=== PATIENT | female | born 1940 | race Caucasian/White ===

== ENCOUNTER 2021-01-02 18:03 | Inpatient (IN) | payer MEDICARE, SELFPAY ==
[2021-01-02 18:19] VITALS: BP 164/79; PULSE 89; RESP 18; TEMP 36.6; O2SAT 94; BMI 25.0
--- NOTE | 2021-01-02 18:25 | CTR_ITS ---
PROCEDURE INFORMATION: Exam: CT Angiography Head With Contrast, Arteriography Exam date and time: 01/02/2021 6:25 PM Age: 80 years old Clinical indication: Speech disturbance; Aphasia; Additional info: Suspected stroke >24 hrs ago TECHNIQUE: Imaging protocol: Computed tomography angiography of the head with contrast. Exam focused on the arteries. 3D rendering (Not supervised by radiologist): MIP and/or 3D reconstructed images were created by the technologist. Radiation optimization: All CT scans at this facility use at least one of these dose optimization techniques: automated exposure control; mA and/or kV adjustment per patient size (includes targeted exams where dose is matched to clinical indication); or iterative reconstruction. Contrast material: VISIPAQUE; Contrast volume: 95 ml; Contrast route: INTRAVENOUS (IV); COMPARISON: CT head wo con* [id number] 01/02/2021 7:31 PM RADIATION DOSE METRICS: Total DLP (mGy-cm): 2001.77 FINDINGS: ANTERIOR CIRCULATION: Right internal carotid artery: Unremarkable. Intracranial segment is patent with no significant stenosis. No aneurysm. Right middle cerebral artery: Unremarkable. No occlusion or significant stenosis. No aneurysm. Right anterior cerebral artery: Unremarkable. No occlusion or significant stenosis. No aneurysm. Left internal carotid artery: Unremarkable. Intracranial segment is patent with no significant stenosis. No aneurysm. Left middle cerebral artery: Unremarkable. No occlusion or significant stenosis. No aneurysm. Left anterior cerebral artery: Unremarkable. No occlusion or significant stenosis. No aneurysm. POSTERIOR CIRCULATION: Right vertebral artery: Unremarkable. No occlusion or significant stenosis. No aneurysm. Left vertebral artery: Unremarkable. No occlusion or significant stenosis. No aneurysm. Basilar artery: Unremarkable. No occlusion or significant stenosis. No aneurysm. Right posterior cerebral artery: Unremarkable. No occlusion or significant stenosis. No aneurysm. Left posterior cerebral artery: Unremarkable. No occlusion or significant stenosis. No aneurysm. Brain: Geographic area of decreased attenuation in the left frontal lobe is redemonstrated. Negative for intracranial hemorrhage. There is moderate cerebral atrophy. Cerebral ventricles: No ventriculomegaly. Bones/joints: Unremarkable. No acute fracture. Soft tissues: Unremarkable. IMPRESSION: No intracranial large arterial vessel occlusion identified. PROCEDURE INFORMATION: Exam: CT Angiography Neck With Contrast Exam date and time: 01/02/2021 6:25 PM Age: 80 years old Clinical indication: Speech disturbance; Aphasia; Additional info: Suspected stroke >24 hrs ago TECHNIQUE: Imaging protocol: Computed tomography angiography of the neck with contrast. 3D rendering (Not supervised by radiologist): MIP and/or 3D reconstructed images were created by the technologist. Radiation optimization: All CT scans at this facility use at least one of these dose optimization techniques: automated exposure control; mA and/or kV adjustment per patient size (includes targeted exams where dose is matched to clinical indication); or iterative reconstruction. Contrast material: VISIPAQUE; Contrast volume: 95 ml; Contrast route: INTRAVENOUS (IV); COMPARISON: CT head wo con* [id number] 01/02/2021 7:31 PM RADIATION DOSE METRICS: Total DLP (mGy-cm): 2001.77 FINDINGS: Right common carotid artery: No stenosis. No dissection or occlusion. Right internal carotid artery: No significant stenosis of the extracranial segment. No dissection or occlusion. Small mostly calcified plaque volume in the bifurcation. Right external carotid artery: No occlusion or stenosis of the origin. Left common carotid artery: No stenosis. No dissection or occlusion. Left internal carotid artery: No significant stenosis of the extracranial segment. No dissection or occlusion. Small mostly calcified plaque volume in the bifurcation. Left external carotid artery: No occlusion or stenosis of the origin. Right vertebral artery: No stenosis. No dissection or occlusion. Left vertebral artery: No stenosis. No dissection or occlusion. Thyroid: Tiny low-attenuation nodule foci in the thyroid lobes with no thyroid gland enlargement. No dedicated follow-up recommended. Soft tissues: Normal. No significant soft tissue swelling. Bones/joints: The cervical spine demonstrates moderate degenerative changes at multiple levels. Unremarkable alignment. Lungs: Mild emphysema of the lung apices. CT/CT angio headneck* [id number] IMPRESSION: 1. Less than 50% stenosis in the carotid arteries. 2. Negative for vascular occlusion in the neck. COMMENTS: Consistent with the [employer]'s Incidental Findings Committee white paper (J Am Hieu Radiol 2015): In patients aged 35 years and older with an incidental thyroid nodule equal to or greater than 1.[address], MRI or extrathyroidal US, further evaluation with dedicated thyroid US is recommended for patients with normal life expectancy and without comorbidities. For smaller nodules without suspicious features, no further evaluation or follow up is recommended. REFERENCES: NASCET CRITERIA. The degree of internal carotid artery stenosis is based on NASCET criteria. Normal is no stenosis. Mild is less than 50% stenosis. Moderate is 50-69% stenosis. Severe is 70% to 99% stenosis. Total occlusion is no detectable patent lumen. Radiation Dose CTDIVOL = (mGy): DLP = 2002.77~2002.77 (mGy-cm)
--- NOTE | 2021-01-02 18:25 | CTR_ITS ---
PROCEDURE INFORMATION: Exam: CT Head Without Contrast Exam date and time: 01/02/2021 6:25 PM Age: 80 years old Clinical indication: Altered mental status/memory loss and speech disturbance; Confusion or disorientation; Aphasia; Additional info: Suspected stroke TECHNIQUE: Imaging protocol: Computed tomography of the head without contrast. Radiation optimization: All CT scans at this facility use at least one of these dose optimization techniques: automated exposure control; mA and/or kV adjustment per patient size (includes targeted exams where dose is matched to clinical indication); or iterative reconstruction. Other technique: STROKE PROTOCOL was implemented. COMPARISON: CT head wo con* [id number] 07/30/2014 5:36 PM RADIATION DOSE METRICS: Total DLP (mGy-cm): 872.27 FINDINGS: Brain: Left frontal 2.7 cm transverse x 1.5 cm AP x 4.9 cm craniocaudal area of decreased attenuation suggestive of a infarct, age indeterminate, new compared to prior exam, in the region of the left lateral middle cerebral artery M2 territory. Cerebral ventricles: No ventriculomegaly. Paranasal sinuses: Visualized sinuses are unremarkable. No fluid levels. Mastoid air cells: Visualized mastoid air cells are well aerated. Bones/joints: Unremarkable. No acute fracture. Soft tissues: Unremarkable. CT/CT head wo con* [id number] IMPRESSION: 1. Left frontal 2.7 cm transverse x 1.5 cm AP x 4.9 cm craniocaudal area of decreased attenuation suggestive of a infarct, age indeterminate, new compared to prior exam, in the region of the left lateral middle cerebral artery M2 territory. 2. Negative for intracranial hemorrhage or mass effect ASSESSMENT: ASPECTS ([place] Stroke Program Early CT Score) is 9. Radiation Dose CTDIVOL = (mGy): DLP = 872.27 (mGy-cm)
--- NOTE | 2021-01-02 18:25 | XRR_ITS ---
PROCEDURE INFORMATION: Exam: XR Chest Exam date and time: 01/02/2021 6:25 PM Age: 80 years old Clinical indication: Cough; Additional info: AMS TECHNIQUE: Imaging protocol: XR of the chest. Views: 1 view. COMPARISON: CT abdomen w con* [id number] 09/16/2014 11:53 AM FINDINGS: Lungs: Unremarkable. No consolidation. Pleural spaces: Unremarkable. No pleural effusion. No pneumothorax. Heart/Mediastinum: Unremarkable. No cardiomegaly. Bones/joints: Unremarkable. XR/XR chest 1V portable [id number] IMPRESSION: Negative for infiltrate
--- NOTE | 2021-01-02 18:25 | W.ED.AMS ---
HPI - Altered Mental Status General: Chief Complaint: ER Hold Stated Complaint: STROKE Time Seen by Provider: 01/02/21 18:05 History of Present Illness: HPI narrative: Ms. Rios is an 80-year-old lady with significant past medical history of diabetes on oral agents and gout who presents to the emergency department due to strokelike symptoms. She was last definitively seen normal approximately 2 days ago. Reportedly she lives alone and spoke normally to a close friend on Saturday however they have not spoken since. She walked to a neighbor's house apparently today and they called 911. She has never had similar episodes in the past. History is otherwise limited by stroke symptoms and mental status change. Review of Systems General: Reports: ROS unobtainable due to mental status PFSH ED PFSH: Medical History Hypertension Surgical History No pertinent past surgical history Physical Exam Narrative: EXAM NARRATIVE: GENERAL/CONSTITUTIONAL - well-appearing. No acute distress. Aphasia Eyes - PERRL, no conjunctival injection ENMT - Atraumatic external nose and ears. Moist mucous membranes NECK - supple. trachea midline CARDIOVASCULAR - regular rate and rhythm. RESPIRATORY -clear to auscultation bilaterally. No retractions or accessory muscle use. ABDOMEN/GI - Nontender/Nondistended. No tenderness to percussion or evidence of peritonitis MSK - Extremities without obvious deformity or tenderness to palpation SKIN - Warm, Dry NEURO -appears to regard appropriately however has marked aphasia. Right upper and lower extremity 3/5 compared to normal on the left side. There is facial droop.. PSYCH -somewhat anxious and frustrated with communication difficulty Course ED course: - Patient was seen and evaluated by me at bedside - Patient placed on cardiac monitors, IV access obtained - Initial evaluation notable for neurologic symptoms as noted above, no acute distress. - Labs and imaging obtained and reviewed - Labs notable for no obvious abnormality to explain the patient's symptoms - Imaging notable for stroke. Unfortunately due to unclear time of onset of symptoms patient is not a candidate for either endovascular retrieval or thrombolysis. The patient's friend, upon arrival, did note that the patient had a history of manipulation by a chiropractor and thus a CTA was ordered to rule out dissection as the cause - Upon serial reexamination after treatment the patient was similar - Based on patient history, evaluation, labs, and imaging as interpreted the most likely cause of the patient's condition is stroke with unclear symptom onset - The results of ED evaluation were discussed with the patient including plan for admission due to requirement for level of care not available if discharged to prevent significant worsening/deterioration. - Admitting service was contacted and Dr Grossman with internal medicine hospitalist agreed to admit the patient - Patient was admitted without further deterioration or significant events. Vital Signs: Vital signs: Vital Signs Temperature 97.9 F 01/03/21 19:20 Pulse Rate 114 H 01/03/21 19:20 Respiratory Rate 16 01/03/21 19:20 Blood Pressure 150/82 01/03/21 19:20 Pulse Oximetry 94 01/03/21 19:20 MDM - Altered Mental Status Lab Data: Labs: Lab Results 01/02/21 01/02/21 01/02/21 Range/Units 19:18 20:41 20:41 WBC 12.4 H (4.0-10.0) 10^3/ uL RBC 4.28 (4.1-5.3) 10^6/u L Hgb 12.1 (11.5-15.3) g/dL Hct 37.7 (37.0-47.0) % MCV 88.1 (81-99) fL MCH 28.3 (28.0-34.0) pg MCHC 32.1 (30.0-36.0) g/dL RDW 14.1 (12.1-15.1) % Plt Count 344 (130-400) 10^3/c mm MPV 9.5 (7.4-10.4) fL Neut % (Auto) 68.9 % Lymph % (Auto) 19.7 % [place] % (Auto) 9.4 % Eos % (Auto) 1.0 % Baso % (Auto) 0.6 % Neut # (Auto) 8.55 H (1.8-7.7) 10^3/u L Lymph # (Auto) 2.5 (0.8-4.8) 10^3/u L [place] # (Auto) 1.2 H (0.2-0.9) 10^3/u L Eos # (Auto) 0.1 (0.0-0.8) 10^3/u L Baso # (Auto) 0.1 (0.0-0.1) 10^3/u L Nucleated RBC % (a uto) 0 % Nucleated RBCs # 0.0 /100WBC PT (12.1-14.9) SECO NDS INR (0.8-1.2) APTT (23.9-36.7) SECO NDS Sodium 137 (136-145) mmol/L Potassium 3.5 (3.5-5.1) mmol/L Chloride 99 (98-107) mmol/L Carbon Dioxide 22 (22-29) mmol/L Anion Gap 19.5 H (5-19) BUN 39 H (8-23) mg/dL Creatinine 1.1 H (0.5-0.9) mg/dL GFR Calculation Not Reportable Glucose 96 (65-115) mg/dL POC Glucose 111 H (70-110) mg/dL Calculated Osmolal ity 293 (285-295) mOsm/k g Calcium 9.4 (8.5-10.5) mg/dL Total Bilirubin 0.6 (0.15-1.2) mg/dL AST 16 (0-32) U/L ALT 9 (0-33) U/L Alkaline Phosphata se 72 (35-105) IU/L Total Protein 7.2 (6.6-8.7) g/dL Albumin 4.0 (3.5-5.2) g/dL Globulin 3.2 (1.3-4.6) g/dL TSH 1.15 (0.27-4.20) uIU/ mL 01/02/21 Range/Units 20:41 WBC (4.0-10.0) 10^3/ uL RBC (4.1-5.3) 10^6/u L Hgb (11.5-15.3) g/dL Hct (37.0-47.0) % MCV (81-99) fL MCH (28.0-34.0) pg MCHC (30.0-36.0) g/dL RDW (12.1-15.1) % Plt Count (130-400) 10^3/c mm MPV (7.4-10.4) fL Neut % (Auto) % Lymph % (Auto) % [place] % (Auto) % Eos % (Auto) % Baso % (Auto) % Neut # (Auto) (1.8-7.7) 10^3/u L Lymph # (Auto) (0.8-4.8) 10^3/u L [place] # (Auto) (0.2-0.9) 10^3/u L Eos # (Auto) (0.0-0.8) 10^3/u L Baso # (Auto) (0.0-0.1) 10^3/u L Nucleated RBC % (a uto) % Nucleated RBCs # /100WBC PT 14.00 (12.1-14.9) SECO NDS INR 1.05 (0.8-1.2) APTT 26.1 (23.9-36.7) SECO NDS Sodium (136-145) mmol/L Potassium (3.5-5.1) mmol/L Chloride (98-107) mmol/L Carbon Dioxide (22-29) mmol/L Anion Gap (5-19) BUN (8-23) mg/dL Creatinine (0.5-0.9) mg/dL GFR Calculation Glucose (65-115) mg/dL POC Glucose (70-110) mg/dL Calculated Osmolal ity (285-295) mOsm/k g Calcium (8.5-10.5) mg/dL Total Bilirubin (0.15-1.2) mg/dL AST (0-32) U/L ALT (0-33) U/L Alkaline Phosphata se (35-105) IU/L Total Protein (6.6-8.7) g/dL Albumin (3.5-5.2) g/dL Globulin (1.3-4.6) g/dL TSH (0.27-4.20) uIU/ mL Imaging Data^: CXR: Attestation: I personally reviewed and interpreted this imaging study as follows: My impression: No lobar consolidation Radiologist's impression: Negative for infiltrate EKG Data^: EKG 1: Attestation: I personally reviewed and interpreted this EKG as follows: EKG interpretation date: 01/02/21 EKG interpretation time: 19:20 Prior EKG tracings: not available for review Ischemic changes: non-specific ST-T wave changes Interpretation: Twelve-lead EKG shows a regular sinus rhythm at a rate of 84 NE interval 136. Normal axis. Nonspecific ST segment abnormalities not meeting STEMI criteria Interpretation: Sinus rhythm. 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
--- NOTE | 2021-01-02 18:27 | ECG_ITS ---
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 Measurements Intervals [place] Rate: 84 P: 2 TN: 136 QRS: 20 QRSD: 83 T: 16 QT: 361 QTc: 428 Interpretive Statements SINUS RHYTHM NONSPECIFIC T-WAVE ABNORMALITY Compared to ECG 07/30/2014 17:51:04 T-wave abnormality now present Electronically Signed On 01-05-2021 7:46:38 CDT by Maria E Espinoza M.D. [id number]
[2021-01-02 18:37] VITALS: BP 164/79; PULSE 87; RESP 18; O2SAT 95
[2021-01-02 19:21] LABS: Glucose Point of Care 111 mg/dL (70-110)
[2021-01-02] MEDS: iodixanol 320 mg/mL 100mL Btl IV (19:52)
[2021-01-02 20:47] VITALS: BP 165/74; PULSE 92; RESP 20; O2SAT 98
--- NOTE | 2021-01-02 20:47 | PC.NURSE ---
Pt still unable to speak and still exhibits R sided facial droop, but appears alert and answers yes or no questions appropriately with a nod of her head. Family in room. Pt answers questions by stating that her symptoms began yesterday. VSS.
[2021-01-02 20:48] LABS: Basophils # 0.1 10^3/uL (0.0-0.1); Basophils % 0.6 %; Eosinophils # 0.1 10^3/uL (0.0-0.8); Hematocrit 37.7 % (37.0-47.0); Hemoglobin 12.1 g/dL (11.5-15.3); Lymphocytes # 2.5 10^3/uL (0.8-4.8); Lymphocytes % 19.7 %; Mean Corpuscular HGB Conc 32.1 g/dL (30.0-36.0); Mean Corpuscular Hemoglobin 28.3 pg (28.0-34.0); Mean Corpuscular Volume 88.1 fL (81-99); Mean Platelet Volume 9.5 fL (7.4-10.4); Monocytes # 1.2 10^3/uL (0.2-0.9); Monocytes % 9.4 %; Neutrophils # 8.55 10^3/uL (1.8-7.7); Neutrophils % 68.9 %; Nucleated Red Blood Cells % 0 %; Platelet Count 344 10^3/cmm (130-400); Red Blood Count 4.28 10^6/uL (4.1-5.3); Red Cell Distribution Width 14.1 % (12.1-15.1); White Blood Count 12.4 10^3/uL (4.0-10.0)
[2021-01-02 20:58] LABS: INR 1.05 (0.8-1.2); Partial Thromboplastin Time 26.1 SECONDS (23.9-36.7)
[2021-01-02 21:21] LABS: Alanine Aminotransferase 9 U/L (0-33); Alkaline Phosphatase 72 IU/L (35-105); Anion Gap 19.5 (5-19); Aspartate Amino Transferase 16 U/L (0-32); Blood Urea Nitrogen 39 mg/dL (8-23); Calcium 9.4 mg/dL (8.5-10.5); Carbon Dioxide 22 mmol/L (22-29); Chloride 99 mmol/L (98-107); Globulin 3.2 g/dL (1.3-4.6); Glucose 96 mg/dL (65-115); Osmolality Calculated 293 mOsm/kg (285-295); Potassium 3.5 mmol/L (3.5-5.1); Sodium 137 mmol/L (136-145); Thyroid Stimulating Hormone 1.15 uIU/mL (0.27-4.20); Total Bilirubin 0.6 mg/dL (0.15-1.2); Total Protein 7.2 g/dL (6.6-8.7)
--- NOTE | 2021-01-02 21:24 | PC.NURSE ---
PCP Dr. Danay Troy [phone]
--- NOTE | 2021-01-02 22:29 | PM.HP ---
Providers/Chief Complaint Admitting Physician: Azucena Grossman MD Primary Care Provider: Bunny Mccloud MD Chief Complaint: STROKE History of Present Illness History obtained by talking to ERP as patient unable to give history due to aphasia. Kylah Rios is a 80 year old female with PMH HTN. last known to be in her usual state of health on Saturday, presented at her neighbor's home today with new aphasia. She has had word finding difficulty, unable to articulate, however communicating with animated gestures. She is unable to write. Appears to understand all questions being asked and responds with head nods and gestures which appear appropriate. She has mild right sided weakness and also a noticeable facial droop. Ct head shows new frontal infarct. CTA without acute occlusion. Review of Systems General: Reports: ROS unobtainable due to medical condition Medications/Allergies Home Medications Medication Instructions Recorded Confirmed Last Taken Type copoujzuvs-bjmfwntih-cafnvbbbn 1 tab PO DAILY 01/02/21 01/02/21 01/02/21 History PFSH Acute PFSH: Medical History (Updated 01/03/21 @ 03:17 by Azucena Grossman MD) Hypertension Vitals/I&O/Wt Last Vital Signs Temp 97.8 F 01/02/21 18:19 Pulse 92 01/02/21 20:47 Resp 20 H 01/02/21 20:47 BP 165/74 01/02/21 20:47 Pulse Ox 98 01/02/21 20:47 Weight last 48 hrs Weight 70.307 kg Physical Exam Narrative: EXAM NARRATIVE: General: No acute distress, appears to be alert and awake HEENT: PERRLA, pupils bilaterally equal and reactive, pallors not present Chest: Normal vesicular breath sounds, no added sounds, equal good air entry bilaterally CVS: S1-S2 regular, no murmurs, no tachycardia, no gallops, no rubs Abdomen: Soft, nontender, no organomegaly, bowel sounds present Neuro: RUE and RLE stength 4/5, left 5/5 , facial asymmetry +, left facial droop, Extremities: no pallor edema or clubbing . Data : 01/02/21 20:41 01/02/21 20:41 Other Labs: Laboratory Results WBC 12.4 10^3/uL (4.0-10.0) H 01/02/21 20:41 RBC 4.28 10^6/uL (4.1-5.3) 01/02/21 20:41 Hgb 12.1 g/dL (11.5-15.3) 01/02/21 20:41 Hct 37.7 % (37.0-47.0) 01/02/21 20:41 MCV 88.1 fL (81-99) 01/02/21 20:41 MCH 28.3 pg (28.0-34.0) 01/02/21 20:41 MCHC 32.1 g/dL (30.0-36.0) 01/02/21 20:41 RDW 14.1 % (12.1-15.1) 01/02/21 20:41 Plt Count 344 10^3/cmm (130-400) 01/02/21 20:41 MPV 9.5 fL (7.4-10.4) 01/02/21 20:41 Neut % (Auto) 68.9 % 01/02/21 20:41 Lymph % (Auto) 19.7 % 01/02/21 20:41 [place] % (Auto) 9.4 % 01/02/21 20:41 Eos % (Auto) 1.0 % 01/02/21 20:41 Baso % (Auto) 0.6 % 01/02/21 20:41 Neut # (Auto) 8.55 10^3/uL (1.8-7.7) H 01/02/21 20:41 Lymph # (Auto) 2.5 10^3/uL (0.8-4.8) 01/02/21 20:41 [place] # (Auto) 1.2 10^3/uL (0.2-0.9) H 01/02/21 20:41 Eos # (Auto) 0.1 10^3/uL (0.0-0.8) 01/02/21 20:41 Baso # (Auto) 0.1 10^3/uL (0.0-0.1) 01/02/21 20:41 Nucleated RBC % (auto) 0 % 01/02/21 20:41 Nucleated RBCs # 0.0 /100WBC 01/02/21 20:41 PT 14.00 SECONDS (12.1-14.9) 01/02/21 20:41 INR 1.05 (0.8-1.2) 01/02/21 20:41 APTT 26.1 SECONDS (23.9-36.7) 01/02/21 20:41 Sodium 137 mmol/L (136-145) 01/02/21 20:41 Potassium 3.5 mmol/L (3.5-5.1) 01/02/21 20:41 Chloride 99 mmol/L (98-107) 01/02/21 20:41 Carbon Dioxide 22 mmol/L (22-29) 01/02/21 20:41 Anion Gap 19.5 (5-19) H 01/02/21 20:41 BUN 39 mg/dL (8-23) H 01/02/21 20:41 Creatinine 1.1 mg/dL (0.5-0.9) H 01/02/21 20:41 GFR Calculation Not Reportable 01/02/21 20:41 Glucose 96 mg/dL (65-115) 01/02/21 20:41 POC Glucose 111 mg/dL (70-110) H 01/02/21 19:18 Calculated Osmolality 293 mOsm/kg (285-295) 01/02/21 20:41 Calcium 9.4 mg/dL (8.5-10.5) 01/02/21 20:41 Total Bilirubin 0.6 mg/dL (0.15-1.2) 01/02/21 20:41 AST 16 U/L (0-32) 01/02/21 20:41 ALT 9 U/L (0-33) 01/02/21 20:41 Alkaline Phosphatase 72 IU/L (35-105) 01/02/21 20:41 Total Protein 7.2 g/dL (6.6-8.7) 01/02/21 20:41 Albumin 4.0 g/dL (3.5-5.2) 01/02/21 20:41 Globulin 3.2 g/dL (1.3-4.6) 01/02/21 20:41 TSH 1.15 uIU/mL (0.27-4.20) 01/02/21 20:41 Urine Color Yellow (Yellow) 01/03/21 02:20 Urine Appearance Clear (CLEAR) 01/03/21 02:20 Urine pH 5 (5-7) 01/03/21 02:20 Ur Specific [place] 1.010 (1.005-1.030) 01/03/21 02:20 Urine Protein Neg (Negative) 01/03/21 02:20 Urine Glucose (UA) Norm (Normal) 01/03/21 02:20 Urine Ketones Negative (Negative) 01/03/21 02:20 Urine Blood Neg (Negative) 01/03/21 02:20 Urine Nitrate Negative (Negative) 01/03/21 02:20 Urine Bilirubin Neg (Negative) 01/03/21 02:20 Urine Urobilinogen Norm mg/dL (Negative) 01/03/21 02:20 Ur Leukocyte Esterase 1+ (Negative) H 01/03/21 02:20 Urine RBC 0-4 /hpf (0-2) H 01/03/21 02:20 Urine WBC 5-10 /hpf (0-5) H 01/03/21 02:20 Ur Squamous Epith Cells 0-4 /hpf (0-5) H 01/03/21 02:20 Amorphous Sediment Not Reportable 01/03/21 02:20 Urine Bacteria Trace /hpf (NONE) 01/03/21 02:20 Impressions Chest X-Ray 01/02/21 18:25 IMPRESSION: Negative for infiltrate Head CT 01/02/21 18:25 IMPRESSION: 1. Left frontal 2.7 cm transverse x 1.5 cm AP x 4.9 cm craniocaudal area of decreased attenuation suggestive of a infarct, age indeterminate, new compared to prior exam, in the region of the left lateral middle cerebral artery M2 territory. 2. Negative for intracranial hemorrhage or mass effect ASSESSMENT: ASPECTS ([place] Stroke Program Early CT Score) is 9. Radiation Dose CTDIVOL = (mGy): DLP = 872.27 (mGy-cm) Head/Neck CTA 01/02/21 18:25 IMPRESSION: 1. Less than 50% stenosis in the carotid arteries. 2. Negative for vascular occlusion in the neck. COMMENTS: Consistent with the [place] [employer]'s Incidental Findings Committee white paper (J Am Hieu Radiol 2015): In patients aged 35 years and older with an incidental thyroid nodule equal to or greater than 1.[address], MRI or extrathyroidal US, further evaluation with dedicated thyroid US is recommended for patients with normal life expectancy and without comorbidities. For smaller nodules without suspicious features, no further evaluation or follow up is recommended. REFERENCES: NASCET CRITERIA. The degree of internal carotid artery stenosis is based on NASCET criteria. Normal is no stenosis. Mild is less than 50% stenosis. Moderate is 50-69% stenosis. Severe is 70% to 99% stenosis. Total occlusion is no detectable patent lumen. Radiation Dose CTDIVOL = (mGy): DLP = 2001.77~2001. 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
--- NOTE | 2021-01-02 22:35 | PC.NURSE ---
Ambulated to bathroom for urine specimen; missed the hat. Pt had ambulated approx 1 hour ago for same, but was unable to provide specimen. Will try again in a few minutes.
--- NOTE | 2021-01-02 22:36 | PC.NURSE ---
Pt able to speak a few words now. Was unable to speak at all upon arrival.
[2021-01-02 22:40] VITALS: BP 162/71; PULSE 90; RESP 18; O2SAT 98
[2021-01-03] VITALS (11 sets, daily range): BP systolic 89–161; BP diastolic 56–82; PULSE 63–114; RESP 16–20; TEMP 36.4–36.7; O2SAT 93–98
[2021-01-03] MEDS: famotidine 20 mg/2 mL INJ IVP ×3 (01:43→23:18)
[2021-01-03] MEDS: enoxaparin 40 mg/0.4 mL Syringe SUBCUT ×2 (01:43→23:20)
[2021-01-03] MEDS: dextrose 5%-sod chloride 0.9% 1,000 ML 50 ML IV ×2 (01:45→21:07)
--- NOTE | 2021-01-03 02:33 | PC.NURSE ---
Ambulated with assistance to bathroom and was able to provide urine specimen. Repositioned back into bed. Lights turned down for comfort.
[2021-01-03 03:10] LABS: Add Urine Culture? No; Add Urine Microscopic? YES; Bacteria Urine TRACE /hpf; Bilirubin Urine Neg (Negative); Blood Urine Neg (Negative); Glucose Urine UA Norm (Normal); Ketones Urine Negative (Negative); Leukocyte Esterase Urine 1+ (Negative); Nitrate Urine Negative (Negative); Protein Urine Neg (Negative); RBC Urine 0-4 /hpf (0-2); Squamous Epithelial Cell Urine 0-4 /hpf (0-5); Urine Appearance Clear (CLEAR); Urine Color Yellow (Yellow); Urobilinogen Urine Norm (Negative); pH Urine 5 (5-7)
[2021-01-03 07:57] LABS: Basophils # 0.1 10^3/uL (0.0-0.1); Basophils % 1.2 %; Eosinophils # 0.3 10^3/uL (0.0-0.8); Eosinophils % 3.5 %; Hematocrit 34.1 % (37.0-47.0); Hemoglobin 11.1 g/dL (11.5-15.3); Lymphocytes # 1.8 10^3/uL (0.8-4.8); Lymphocytes % 21.6 %; Mean Corpuscular HGB Conc 32.6 g/dL (30.0-36.0); Mean Corpuscular Hemoglobin 28.2 pg (28.0-34.0); Mean Corpuscular Volume 86.8 fL (81-99); Mean Platelet Volume 9.7 fL (7.4-10.4); Monocytes # 0.8 10^3/uL (0.2-0.9); Monocytes % 9.5 %; Neutrophils # 5.34 10^3/uL (1.8-7.7); Neutrophils % 63.8 %; Nucleated Red Blood Cells % 0 %; Platelet Count 304 10^3/cmm (130-400); Red Blood Count 3.93 10^6/uL (4.1-5.3); Red Cell Distribution Width 14.1 % (12.1-15.1); White Blood Count 8.4 10^3/uL (4.0-10.0)
[2021-01-03] MEDS: amlodipine 10 mg Tablet PO (08:05)
[2021-01-03] MEDS: atorvastatin 40 mg Tablet PO (08:05)
[2021-01-03] MEDS: aspirin 81 mg EC Tablet PO (08:05)
[2021-01-03 08:09] LABS: Estmated Average Glucose 103; Hemoglobin A1C 5.2 % (4.0-6.0)
[2021-01-03 08:16] LABS: Alanine Aminotransferase 7 U/L (0-33); Albumin Level 3.8 g/dL (3.5-5.2); Alkaline Phosphatase 68 IU/L (35-105); Anion Gap 14.6 (5-19); Aspartate Amino Transferase 12 U/L (0-32); Blood Urea Nitrogen 33 mg/dL (8-23); Carbon Dioxide 27 mmol/L (22-29); Chloride 102 mmol/L (98-107); Chol HDL Ratio 3.38 mg/dL (0.0-4.40); Cholesterol 206 mg/dL (0-200); Globulin 2.3 g/dL (1.3-4.6); Glucose 93 mg/dL (65-115); HDL Cholesterol 61 mg/dL (60-100); LDL Cholesterol Calculated 129 mg/dL (50-129); LDL HDL Ratio 2.11 RATIO (0.00-3.22); Osmolality Calculated 297 mOsm/kg (285-295); Potassium 3.6 mmol/L (3.5-5.1); Sodium 140 mmol/L (136-145); Total Bilirubin 0.8 mg/dL (0.15-1.2); Total Protein 6.1 g/dL (6.6-8.7); Triglycerides 82 mg/dL (0-150)
[2021-01-03 08:23] LABS: Procalcitonin 0.13 ng/mL (0-0.5)
[2021-01-03 08:34] LABS: Phosphorus 3.2 mg/dL (2.5-4.5)
--- NOTE | 2021-01-03 12:39 | PM.PN ---
Subjective Subjective: Interval history: Patient was seen in the ER, she was very frustrated that she is not able to talk however able to move her upper and lower extremities and get up on his own in his bed with minimal assistance Pending PT/OT evaluation Case discussed with case management social worker during MDR Her family friend is willing to take care of her at home with home home health services, patient does not want to go to any senior living Vitals/I&O/Wt Last Vital Signs Temp 97.5 F L 01/03/21 12:00 Pulse 81 01/03/21 12:00 Resp 17 01/03/21 12:00 BP 148/72 01/03/21 12:00 Pulse Ox 98 01/03/21 12:00 Weight last 48 hrs Weight 56.336 kg Weight 70.307 kg Physical Exam Narrative: EXAM NARRATIVE: Patient was laying comfortably in her bed able to get up on her own and sit by the bedside Saturating well on room air Normotensive EOMI, PERRLA Expressive aphasia Able to comprehend my questions and concerns, she is very frustrated about her aphasia Mild right arm and leg weakness, able to ambulate with minimal assistance Right-sided facial droop S1, S2 sinus rhythm Soft abdomen Bilateral breath sounds Data : 01/03/21 07:38 01/03/21 07:38 A&P Assessment and plan (1) Expressive aphasia: Status: Acute (2) Stroke: Status: Acute Additional A&P Information Acute left MCA stroke Expressive aphasia Normotensive Euglycemic Sodium 140 EKG showing sinus rhythm CTA head and neck without acute occlusion, likely atherosclerotic etiology PT/OT evaluation Speech evaluation Patient does not want to go to senior living, talked with her family friend who is willing to take care of her at home with home health services and if needed can bring her to [facility] for physical therapy as well, if senior living required, would prefer [place] closer to home manager 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
[2021-01-03 14:13] LABS: Coronavirus Test Green County Not Detected
[2021-01-04 04:00] VITALS: BP 188/79; PULSE 81; RESP 16; TEMP 36.7; O2SAT 97
[2021-01-04 06:00] VITALS: PULSE 81
[2021-01-04 08:47] VITALS: BP 152/60; PULSE 89; RESP 15; TEMP 36.6; O2SAT 94
[2021-01-04] MEDS: aspirin 81 mg EC Tablet PO (09:38)
[2021-01-04] MEDS: amlodipine 10 mg Tablet PO (09:38)
[2021-01-04] MEDS: clopidogrel 75 mg Tablet PO (09:38)
[2021-01-04] MEDS: atorvastatin 40 mg Tablet 80 MG PO (09:38)
--- NOTE | 2021-01-04 11:45 | PC.CHAP ---
Pastoral Care Encounter/Spiritual Assessment Type of Contact [] Declined auto body mechanic apprentice visit [] Patient/Family/Request visit [] Outpatient visit [] Follow-up visit [] Physician referral [] Code/Alert [x] Routine visit [] Staff referral [] Actively dying [x] Patient sleeping [] Family support [] [] Out of room [] Palliative care [] [] Receiving care in room [] Pre-surgical visit [] Trauma [] Long length of stay [] ICU visit [] Other: Relational/Emotional Strength [] Patient feels connected with others/family/visitors/staff [] Distress [] Loneliness/isolation [] Abandonment Spirituality of Patient [] Person of Sofia [] Attends Protestant of their [place] [] Believes in Prayer [] Reads Bible or Amish materials [] There are Spiritual issues to be addressed Supervisor Train Operations Interventions [] Prayer [] Active listening [] Non-anxious presence [] Spiritual/emotional support [] Crisis/trauma care [] Spiritual counseling [] Bereavement support [] Provided bereavement packet [] Provided Bible/devotional materials [] Provided toy/stuffed animal, coloring book to patient or family member [] Provided Communion [] Anointing/[place] [] Salvation [] Completed spiritual assessment [] Other: Impact on Illness or Injury [] Angry [] Fearful [] Anxious [] Often cries [] Exhaustion [] Unable to work [] Unable to attend caodaism [] Unable to walk/stand [] Unable to read [] Unable to drive [] Unable to eat/drink [] Unable to sleep [] Unable to be with family [] Patient intubated [] Other: Summary Time spent with patient
[2021-01-04 13:02] VITALS: BP 128/79; PULSE 82; RESP 16; TEMP 36.4; O2SAT 97
[2021-01-04 14:42] VITALS: BP 128/79; PULSE 82; RESP 16; TEMP 36.4; O2SAT 97
--- NOTE | 2021-01-04 16:44 | PM.DCS ---
Discharge Providers Date of Admission: 01/03/21 01:31 Date of Discharge: January 04, 2021 Attending Provider at Admission: Azucena Grossman MD Attending Provider at Discharge: Azucena Grossman MD Primary Care Provider: Bunny Mccloud MD Diagnoses at Discharge Discharge Diagnosis (1) Expressive aphasia: Status: Acute (2) Stroke: Status: Acute Reason for Visit Reason for Visit: STROKE Hospital Course Hospital Course Patient was admitted for management of dense right-sided hemiplegia, right-sided facial droop and expressive aphasia. She was not a TPA candidate, large area of infarct noted on CT head however CTA head and neck did not show any vascular occlusion. With PT evaluation she did very well she was deemed stable to return home. Patient does not have any family members, there is a family friend who is willing to take care of her and she is excited to return. Did talk with the family friend who is willing to take it for PT or speech evaluation. Patient will be discharged on aspirin, Plavix and high-dose atorvastatin. For speech evaluation recommended following up at [facility]. On the day of discharge patient was able to articulate some words. However she seems very frustrated with her aphasia. She refused residential placement and was adamant to be discharged home so she could stay with her family friends. No signs of irregular heart rhythm, telemetry did not show any signs of atrial fibrillation. And no clot seen on CTA head and neck. This most likely is related to atherosclerotic disease involving MCA. Physical Exam Narrative: EXAM NARRATIVE: Patient was laying sitting comfortably in her chair, able to stand up without any assistance Saturating well on room air Normotensive EOMI, PERRLA Expressive aphasia Able to comprehend my questions and concerns, she is very frustrated about her aphasia, able to articulate some words Mild right arm and leg weakness, able to ambulate with minimal assistance Right-sided facial droop S1, S2 sinus rhythm Soft abdomen Bilateral breath sounds Discharge Data Data Completed and Pending: Completed Studies During Hospitalization Category Date Time Status CT angio headneck * 97705/19105 Urge nt Cat Scan 01/02/21 18:[address] head wo con* 7 0450 Urgent Cat Scan 01/02/21 18:25 Completed XR chest 1V [place] 50514 Urgent Exams 01/02/21 18:25 Completed Vitals: Last Vital Signs Temp 97.6 F 01/04/21 14:42 Pulse 82 01/04/21 14:42 Resp 16 01/04/21 14:42 BP 128/79 01/04/21 14:42 Pulse Ox 97 01/04/21 14:42 Discharge Plan Discharge Patient Disposition: Home Condition: Stable Prescriptions: New clopidogrel 75 mg Tablet 75 mg PO DAILY 30 Days Qty: 30 RF: 0 aspirin 81 mg Tablet,Delayed Release (Dr/Ec) 81 mg PO DAILY 30 Days Qty: 30 RF: 0 Lipitor 80 mg tablet 80 mg PO DAILY Qty: 30 RF: 1 Continued gmqqiiwwei-ufedlywvu-vfqikxoxt 40-10-25 mg tablet 1 tab PO DAILY RF: 0 Discontinued wojrzrpgxx-rbkwbwguq-iizgyuoec 40-10-25 mg tablet 1 tab PO DAILY RF: 0 tramadol 50 mg tablet 50 mg PO Q8H PRN (Reason: Pain) RF: 0 baclofen 10 mg tablet 5 - 10 mg PO BID PRN (Reason: Pain) RF: 0 cetirizine 10 mg tablet 10 mg PO DAILY RF: 0 Discharge Orders: Discharge Order (Routine); Ordered 01/04/21 Ordered By: Aparna Macedo Other Ambulatory Orders: DME: Walker (Order) Location: None Selected Ordered By: Aparna Macedo Speech Language Pathology Eval and Treat Outpatient (Order) Timeframe: 3 Months Facility: [facility] - Location: Speech Therapy [facility] Ordered By: Aparna Macedo Referrals: Outpatient Speech Therapy [Other] ([facility] will joe you to set up an appointment to start Outpatient Speech Therapy. Their ext:[phone]) Bunny Mccloud MD [Primary Care Provider] - 01/11/21 10:20 am Discharge Diet: Soft Mechanical Discharge Activity: Use walker/crutches as instructed and As per PT/OT instructions Patient Instructions: Aspirin (By mouth), Atorvastatin (By mouth), Clopidogrel (By mouth), Aphasia (GEN), Ischemic Stroke (GEN), Opioid Safety, Stroke Stoplight Discharge Attestations Time Spent in Discharge Care*: less than 30 min Quality Metrics Clinical Quality Measures During this hospital stay, did patient experience: Stroke Contraindication to Antithrombotic: Antithrombotic prescribed Contraindication to Anticoagulation: Medical contraindication Contraindication to Statin: Statin prescribed Contraindication to antithrombotic day 2: Antithrombotic given Contraindication to tPA: Did not meet criteria Coding Level of Care Code Acute Chg FW DC note Diagnoses Expressive aphasia R47.01 Stroke I63.9
--- NOTE | 2021-01-09 13:41 | PC.SOCIAL ---
hospital follow up call made, no answer.
--- NOTE | 2021-01-09 13:46 | PC.SOCIAL ---
hospital follow up call made to patient. patient has follow up appointment with Dr. Troy for 8-17 wants the appointment with cancelled, appointment cancelled for patient. Patient hasn't heard from speech therapy but says she doesn't want me to call that Dr. Troy will take care of everything tomorrow. Also patient [place] [facility]
== END 2021-01-04 14:44 | disposition home or self-care (01) | DRG 65 ==
LOC: ER 21:20 → ER IP 01-03 06:34 → MEDSURG 01-03 09:04
PROVIDERS: Admitting Provider Student in an Organized Health Care Education/Training Program; Emergency Provider Emergency Medicine; PCP Family Medicine; Visit Provider Student in an Organized Health Care Education/Training Program
DX: I63.9 Cerebral infarction, unspecified (principal); G81.91 Hemiplegia, unspecified affecting right dominant side; E11.9 Type 2 diabetes mellitus without complications; I10 Essential (primary) hypertension; Z79.82 Long term (current) use of aspirin; Z79.4 Long term (current) use of insulin; Z20.822 Contact with and (suspected) exposure to COVID-19
CPT/HCPCS: 36415; 36416; 70450; 70496; 70498; 71045; 80053; 80061; 81001; 82962; 83036; 84100; 84145; 84443; 85025; 85610; 85730; 87635; 92507; 92523; 92526; 92610; 93005; 96361; 96372; 96374; 97116; 97161; 97165; 97530; 99285; J1650; J3490; Q9967